=== PATIENT | female | born 1985 | race African-American/Black ===

== ENCOUNTER 2021-05-27 15:00 | Inpatient (IN) | payer MEDICAID ==
[~2021-05-27] VITALS: Ht 170.2 cm; Wt 77.1 kg
[2021-05-27] MEDS ORDERED: ACETAMINOPHEN 500MG TABLET PO NR (16:00)
[2021-05-27] MEDS ORDERED: LACTATED RINGERS 1,000 ML IV SCH (16:00)
[2021-05-27 16:19] LABS: BASOPHILS % 0.2 % (0.0-2.0); EOSINOPHILS % 0.1 % (0.0-5.0); HEMATOCRIT. 34.9 % (36.0-48.0); HEMOGLOBIN. 11.2 g/dL (12.0-16.0); LYMPHOCYTES % 10.7 % (20.0-50.0); MEAN CORPUSCULAR HEMOGLOBIN 23.4 pg (28.0-32.0); MEAN CORPUSCULAR VOLUME 73.3 fL (81.0-99.0); MEAN PLATELET VOLUME 9.8 fl (7.4-10.4); MONOCYTES % 2.5 % (2.0-8.0); NEUTROPHILS % 86.5 % (40.0-76.0); PLATELET 132 x1000/uL (130-400); RED BLOOD CELL COUNT 4.77 mill/uL (4.2-5.4); RED CELL DISTRIBUTION WIDTH 16.4 % (11.6-14.6)
[2021-05-27 16:21] LABS: CLARITY URINE CLEAR (CLEAR); COLOR URINE YELLOW (YELLOW); KETONES URINE 3+ (NEGATIVE); LEUKOCYTE ESTERASE URINE TRACE (NEGATIVE); NITRITE URINE NEGATIVE (NEGATIVE); OCCULT BLOOD URINE NEGATIVE (NEGATIVE); PH URINE 6.5 (4.5-8.0); PROTEIN URINE NEGATIVE (NEGATIVE); SPECIFIC GRAVITY URINE 1.016 (1.005-1.030); UROBILINOGEN URINE 0.2 E.U./dL (0.2-1.0)
[2021-05-27 16:22] LABS: CHLORIDE 108 mEq/L (98-107)
[2021-05-27] MEDS: LACTATED RINGERS 1,000 ML IV SCH (16:25)
[2021-05-27] MEDS ORDERED: CEFAZOLIN 2,000 MG in DEXT 5% WATER 100 ML IV SCH (18:00)
[2021-05-27] MEDS ORDERED: ACETAMINOPHEN 325MG TABLET PO PRN (18:15)
[2021-05-27] MEDS ORDERED: AMPICILLIN 2,000 MG in SODIUM CHLORIDE 0.9% 100 ML IV SCH (19:00)
[2021-05-27] MEDS ORDERED: OSELTAMIVIR 75MG CAPSULE PO SCH (21:00)
[2021-05-27] MEDS ORDERED: GENTAMICIN 120MG PREMIX 100 ML IV SCH ×2 (21:00→22:15)
[2021-05-27] MEDS ORDERED: CEFTRIAXONE 1 G PREMIX 50 ML IV SCH (22:45)
[2021-05-27] MEDS ORDERED: CEFTRIAXONE 1,000 MG in DEXTROSE 5% WATER 50 ML IV SCH (23:45)
[2021-05-27] MEDS ORDERED: DIPHENHYDRAMINE 50MG/ML VIAL IV NR (23:52)
[2021-05-28] MEDS: LACTATED RINGERS 1,000 ML IV SCH
[2021-05-28] MEDS ORDERED: GENTAMICIN 80MG PREMIX 100 ML IV SCH (05:00)
[2021-05-28 08:41] LABS: CANNABINOID URINE SCREEN NEGATIVE (NEGATIVE); METHADONE URINE SCREEN NEGATIVE (NEGATIVE); OPIATES URINE SCREEN NEGATIVE (NEGATIVE); PHENCYCLIDINE URINE SCREEN NEGATIVE (NEGATIVE)
[2021-05-28 08:42] LABS: *AMPHETAMINES SCREEN URINE NEGATIVE (NEGATIVE); *BARBITURATES SCREEN URINE NEGATIVE (NEGATIVE); *BENZODIAZEPINES SCREEN URINE NEGATIVE (NEGATIVE); *COCAINE SCREEN URINE NEGATIVE (NEGATIVE)
[2021-05-28 12:05] LABS: HEPATITIS B SURFACE ANTIGEN NEGATIVE
[2021-05-28] MEDS ORDERED: PNV1TABL76 MT (13:43)
[2021-06-02 13:06] LABS: INFLUENZA A AB CF 1:32 (Neg:<1:8); INFLUENZA B AB CF 1:16 (Neg:<1:8)
== END 2021-05-28 11:00 | disposition left against medical advice (07) | DRG 566 ==
LOC: OBSVTOIN 15:00 → 8 EST LDRP 15:00
PROVIDERS: ADMIT Obstetrics & Gynecology; ATTEND Obstetrics & Gynecology
DX: O98.513 Other viral diseases complicating pregnancy, third trimester (principal); D25.9 Leiomyoma of uterus, unspecified; J11.1 Influenza due to unidentified influenza virus with other respiratory manifestations; Z53.29 Procedure and treatment not carried out because of patient's decision for other reasons; O34.13 Maternal care for benign tumor of corpus uteri, third trimester; Z20.822 Contact with and (suspected) exposure to COVID-19; Z3A.37 37 weeks gestation of pregnancy
CPT/HCPCS: 36415; 71045; 76805; 76818; 80053; 80305; 81003; 84145; 85025; 86592; 86703; 86710; 86762; 86850; 86900; 87340; 87426; 87804; 96360; 99281; J0290; J0690; J0696; J1200; J1580; J7050; J7060; J7120